=== PATIENT | female | born 1980 | race African-American/Black ===

== ENCOUNTER 2021-01-02 20:22 | Emergency (ER) | payer OTHER ==
[~2021-01-02] VITALS: Ht 170.2 cm; Wt 81.7 kg
[2021-01-02] MEDS ORDERED: NORCO 10-325 T1 EACH PO (22:04)
[2021-01-02] MEDS ORDERED: CYCLOBENZAPRINE5 MG PO (22:04)
[2021-01-02 22:19] VITALS: BP 141/62
== END 2021-01-02 22:19 | disposition home or self-care (01) ==
LOC: ER 20:22
DX: M54.5 Low back pain (principal); M25.551 Pain in right hip; Z88.0 Allergy status to penicillin; W01.0XXA Fall on same level from slipping, tripping and stumbling without subsequent striking against object, initial encounter; Y93.89 Activity, other specified; Y92.89 Other specified places as the place of occurrence of the external cause; Y99.8 Other external cause status